=== PATIENT | male | born 1955 | race Two or more races ===

== ENCOUNTER 2023-01-29 17:20 | Emergency (ER) | payer BC, MEDICARE ==
[~2023-01-29] VITALS: Ht 172.7 cm; Wt 88.9 kg
[2023-01-29] MEDS ORDERED: IBUPROFEN 800 MG TABLET ONE (17:36)
--- NOTE | 2023-01-29 17:38 | NUR ---
Pt seen by . Safety measures in place. Will continue to monitor.
[2023-01-29] MEDS ORDERED: IBUPROFEN 800 MG TABLET PO ONE (17:45)
[2023-01-29] MEDS ORDERED: CYCL10TA9 PO ×2 (17:58→18:11)
[2023-01-29] MEDS ORDERED: NAPR-1009 PO ×2 (17:58→18:11)
--- NOTE | 2023-01-29 18:14 | NUR ---
Patient discharged to home in stable condition. Written and verbal after care instructions given. Patient verbalizes understanding of instructions. Stressed follow up or return to ER for worsening s/s. Pt walked out of ER w/ steady gait.
[2023-01-29 18:15] VITALS: BP 122/80
== END 2023-01-29 18:17 | disposition home or self-care (01) ==
LOC: ER 17:23
DX: S46.912A Strain of unspecified muscle, fascia and tendon at shoulder and upper arm level, left arm, initial encounter (principal); S39.012A Strain of muscle, fascia and tendon of lower back, initial encounter; S13.4XXA Sprain of ligaments of cervical spine, initial encounter; S89.92XA Unspecified injury of left lower leg, initial encounter; Z79.899 Other long term (current) drug therapy; V43.52XA Car driver injured in collision with other type car in traffic accident, initial encounter; Y93.89 Activity, other specified; Y92.410 Unspecified street and highway as the place of occurrence of the external cause; Y99.8 Other external cause status
CPT/HCPCS: 73030; A4663